=== PATIENT | female | born 1955 | race Caucasian/White ===

== ENCOUNTER 2019-02-23 06:51 | Day surgery (SDC) | payer OTHER ==
[2019-02-23] MEDS ORDERED: PROPOFOL 20 ML ×3 (09:26→10:09)
[2019-02-23] MEDS ORDERED: LIDOCAINE 2% (SDV) 5 ML INJ (09:26)
[2019-02-23] MEDS ORDERED: ONDANSETRON 4 MG INJ IV (09:30)
== END 2019-02-23 10:49 | disposition home or self-care (01) ==
LOC: GIL 06:51
DX: Z12.11 Encounter for screening for malignant neoplasm of colon (principal); K29.50 Unspecified chronic gastritis without bleeding; K64.1 Second degree hemorrhoids
CPT/HCPCS: 43239; 88305; 88312